=== PATIENT | female | born 1990 | race Caucasian/White ===

== ENCOUNTER 2018-05-10 19:15 | Emergency (ER) | payer OTHER ==
[2018-05-10 20:10] LABS: HEMOGLOBIN 12.2 g/dL (11.0-16.0); MEAN PLATELET VOLUME 8.5 fL (7.2-11.7)
[2018-05-10 20:16] LABS: SQUAMOUS EPITHIAL 1 /hpf (0-5); URINE BILIRUBIN NEGATIVE (NEGATIVE); URINE BLOOD 3+ (NEGATIVE); URINE CLARITY Clear (Clear); URINE COLOR Straw (YELLOW); URINE GLUCOSE (UA) NORMAL (Normal); URINE LEUKOCYTE ESTERASE NEG Leu/uL (Negative); URINE PROTEIN NEGATIVE (NEGATIVE); URINE UROBILINOGEN NORMAL mg/dL (0.2-1.0)
--- NOTE | 2018-05-10 20:16 | C.PDOC ---
History Of Present Illness 27 y/o female, 7 weeks , presents to the ED complaining of painless vaginal spotting earlier today. The patient reports an IUP during her last ultrasound. She denies any nausea, vomiting or diarrhea. Time Seen by Provider: 05/10/18 19:37 Chief Complaint (Nursing): Female Genitourinary History Per: Patient History/Exam Limitations: no limitations Onset/Duration Of Symptoms: Hrs Current Symptoms Are (Timing): Still Present Quality Of Discomfort: denies: "Pain" Associated Symptoms: denies: Fever, Vomiting, Diarrhea Recent travel outside of the [place]: No Past Medical History Reviewed: Historical Data, Nursing Documentation, Vital Signs Vital Signs: Last Vital Signs Temp 98.5 F 05/10/18 19:24 Pulse 84 05/10/18 19:24 Resp 14 05/10/18 19:24 BP 121/84 05/10/18 19:24 Pulse Ox 97 05/10/18 19:24 - Medical History PMH: No Chronic Diseases Surgical History: No Surg Hx Family History: States: Unknown Family Hx - Social History Hx Alcohol Use: No Hx Substance Use: No - Immunization History Hx Tetanus Toxoid Vaccination: No Hx Influenza Vaccination: No Hx Pneumococcal Vaccination: No Review Of Systems Except As Marked, All Systems Reviewed And Found Negative. Gastrointestinal: Negative for: Nausea, Vomiting, Abdominal Pain, Diarrhea Genitourinary: Positive for: Vaginal Bleeding Physical Exam - Physical Exam Appears: No Acute Distress Skin: Warm, Dry Head: Atraumatic, Normacephalic Eye(s): bilateral: PERRL, EOMI Ear(s): Bilateral: Normal Oral Mucosa: Moist Neck: Supple Chest: Symmetrical Cardiovascular: Rhythm Regular, No Murmur Respiratory: No Rales, No Rhonchi, No Wheezing Gastrointestinal/Abdominal: Soft (benign belly ), No Tenderness, No Distention Extremity: Normal ROM Extremity: Bilateral: Normal Color And Temperature, Normal ROM Neurological/Psych: Oriented x3, Normal Speech Gait: Steady ED Course And Treatment - Laboratory Results Result Diagrams: 05/10/18 20:03 05/10/18 20:03 Lab Interpretation: Normal (QHCG 16,031 (low for dates), O+, 30 WBC's in urine) Urine POC: Positive O2 Sat by Pulse Oximetry: 97 (RA) Pulse Ox Interpretation: Normal - CT Scan/US Transvaginal US Other Rad Studies (CT/US): Read By Radiologist, Radiology Report Reviewed CT/US Interpretation: Impression. 1. Single intrauterine gestational sac. 2. No heart motion is detected. 3. Fluid in the cervix. 4. Enlarged yolk sac versus amniotic membrane measuring 2.02 x 0.8 x 1.1 cm. 5. Findings may represent a embryonic demise. Clinical correlation and consider follow-up study in 3-4 days. Medical Decision Making Medical Decision Making: Impression: 27 y/o female, 7 weeks , with painless vaginal bleeding Plan: -blood bank -HCG -CMP -CBC -UA -Transvaginal US Threatened AB, demise by US and low QHCG by dates defer treating 30 wbc's in urine for now, considered asymptomatic pyuria in non-preg young female. Disposition Doctor Will See Patient In The: Office Counseled Patient/Family Regarding: Studies Performed, Diagnosis - Disposition Disposition: HOME/ ROUTINE Disposition Time: 22:56 Forms: [employer] (Andorran) - Clinical Impression Clinical Impression: Threatened - Scribe Statement The provider has reviewed the documentation as recorded by the Scribe (Kierra Lopez) Provider Attestation: All medical record entries made by the Scribe were at my direction and personally dictated by me. I have reviewed the chart and agree that the record accurately reflects my personal performance of the history, physical exam, me dical decision making, and the department course for this patient. I have also personally directed, reviewed, and agree with the discharge instructions and disposition.
[2018-05-10 20:17] LABS: BASO # 0.1 K/uL (0.0-0.2); BASO % 0.5 % (0.0-2.0); EOS # 0.1 K/uL (0.0-0.7); EOS % 0.8 % (0.0-4.0); LYMPH # 2.9 K/uL (1.0-4.3); LYMPH % 19.9 % (20.0-40.0); MEAN CELL VOLUME 99.9 fL (81.0-99.0); MEAN CORPUSCULAR HEMOGLOBIN 32.9 pg (27.0-31.0); MONO % 6.8 % (0.0-10.0); NEUT # 10.4 K/uL (1.8-7.0); RBC 3.69 Mil/uL (3.80-5.20); RED CELL DISTRIBUTION WIDTH 15.7 % (11.5-14.5); WHITE BLOOD COUNT 14.4 K/uL (4.8-10.8)
[2018-05-10 20:23] LABS: ALB/GLOB RATIO 1.3 (1.0-2.1); ALBUMIN 4.6 g/dL (3.5-5.0); ALT/SGPT 22 U/L (9-52); AST/SGOT 17 U/L (14-36); BLOOD UREA NITROGEN 6 mg/dL (7-17); CALCIUM 9.8 mg/dl (8.6-10.4); GFR NON-AFRICAN AMERICAN > 60
[2018-05-10 23:09] VITALS: BP 132/79; PULSE 108; RESP 20; TEMP 98.9; O2SAT 100
--- NOTE | 2018-05-11 08:56 | US ---
Date of service: 05/10/2018 PROCEDURE: OB Pelvic Ultrasound HISTORY: preg 7 wks, spotting COMPARISON: None available. FINDINGS: UTERUS: There is an single intrauterine gestational sac which is more ovoid in shape with slightly irregular margins. There is a large yolk sac versus amniotic membrane. Gestational sac diameter measures 2.64 cm equivalent to 7 weeks and 3 days of gestational age. Chela-gestational hemorrhage: None. Uterus measures 9.1 x 4.4 x 6.3 cm. No mass CERVIX: Long and closed. There is small amount of fluid in the endocervical canal. RIGHT OVARY: Measures 2.7 x 1.7 x 2.2 cm. No mass. Normal flow. LEFT OVARY: Measures 0.6 x 1.9 x 2.6 cm. No mass. Normal flow. FREE FLUID: None. OTHER FINDINGS: None. IMPRESSION: Single intrauterine gestational sac an abnormal morphology and no definite evidence of pole concerning for anembryonic . A preliminary report was provided by [employer].
== END 2018-05-10 23:09 | disposition home or self-care (01) ==
LOC: C.ER 19:15
DX: O20.0 Threatened abortion (principal); Z3A.01 Less than 8 weeks gestation of pregnancy